=== PATIENT | male | born 1995 | race Caucasian/White ===

== ENCOUNTER 2021-12-05 19:10 | Emergency (ER) | payer OTHER ==
--- NOTE | 2021-12-05 19:56 | ERPHSYRPT ---
- History of Present Illness Time Seen by Provider: 12/05/21 19:56 Source: patient Exam Limitations: no limitations Physician History: This is a 26-year-old white male patient of Dr. Douglas who presents with concerned that he may have come in contact with a bat at his home. This occurred earlier today. He stated that the bat was flying around above his head. He definitely does not recall being bit by the bat. He has not handled the bat nor touched it. He chronically has cuts into his arms and legs and he does not think that they were bat bites but he just was not sure. He has no complaints of symptoms. Quality: other (No symptoms) Location: other (No symptoms) Possible Causes: other (No known bites) Allergies/Adverse Reactions: No Known Drug Allergies Allergy (Verified 12/05/21 19:58) Home Medications: Albuterol Sulfate [Albuterol Sulfate Hfa] 8.5 gm IH Q4-6HPRN PRN 12/05/21 [History] Travel Risk - International Travel Have you traveled outside of the country in past 3 weeks: No - Coronavirus Screening Are you exhibiting any of the following symptoms?: No Close contact with a COVID-19 positive Pt in past 14-21 Days: No - Review of Systems Constitutional: No Symptoms Eyes: No Symptoms Ears, Nose, & Throat: No Symptoms Respiratory: No Symptoms Cardiac: No Symptoms Abdominal/Gastrointestinal: No Symptoms Genitourinary Symptoms: No Symptoms Musculoskeletal: No Symptoms Skin: No Symptoms Neurological: No Symptoms Psychological: No Symptoms Endocrine: No Symptoms Hematologic/Lymphatic: No Symptoms Immunological/Allergic: No Symptoms All Other Systems: Reviewed and Negative - Past Medical History Pertinent Past Medical History: Yes - Past Surgical History Past Surgical History: Yes - Nursing Vital Signs Nursing Vital Signs: Initial Vital Signs Temperature 98.1 F 12/05/21 19:46 Pulse Rate 87 12/05/21 19:46 Respiratory Rate 16 12/05/21 19:46 Blood Pressure 142/105 12/05/21 19:46 O2 Sat by Pulse Oximetry 96 12/05/21 19:46 Pain Scale Pain Intensity 0 - Physical Exam General Appearance: no apparent distress, alert, anxiety Eye Exam: PERRL/EOMI, eyes nml inspection Ears, Nose, Throat Exam: normal ENT inspection, moist mucous membranes Neck Exam: normal inspection, non-tender, supple, full range of motion Respiratory Exam: airway intact, No chest tenderness, No respiratory distress Gastrointestinal/Abdomen Exam: No tenderness Rectal Exam: not done Back Exam: normal inspection, normal range of motion, No CVA tenderness, No vertebral tenderness Extremity Exam: normal inspection, normal range of motion, pelvis stable Neurologic Exam: alert, oriented x 3, cooperative, 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 No obvious scratches to his arms face neck or torso.) Lymphatic Exam: No adenopathy SpO2 Interpretation: normal O2 Delivery: Room Air - Progress Progress: unchanged Progress Note: 12/05/21 20:51 Medical decision making: I believe this patient has a very low risk of having had significant exposure to a bat that could cause rabies. I reassured him that I felt his risk is low. I told him he can be reassessed in the emergency room or by his primary care physician. He does not recall being bit, touching, or being exposed whatsoever to the bat that he actually captured with a fishing net and through outside. Counseled pt/family regarding: diagnosis - Departure Departure Disposition: Home Clinical Impression: Encounter for medical screening examination Condition: Stable Critical Care Time: No Referrals: RISA DOUGLAS MD [Primary Care Provider] - Follow up/PCP as directed Additional Instructions: May return to the emergency department if needed. May follow-up with your [facility] care physician for further evaluation.
[2021-12-05 19:58] VITALS: BP 142/105
[2021-12-05 21:10] VITALS: PULSE 74; O2SAT 98
== END 2021-12-05 21:09 | disposition home or self-care (01) ==
LOC: ED 19:10
DX: Z77.128 Contact with and (suspected) exposure to other hazards in the physical environment (principal)
CPT/HCPCS: 99281

== ENCOUNTER 2023-08-25 13:07 | Emergency (ER) | payer OTHER ==
--- NOTE | 2023-08-25 13:52 | XRAY ---
Indication: Pain and swelling following injury. Comparison: None 3 portable views right hand demonstrates nondisplaced minimally angulated fracture distal 5th metacarpal with soft tissue swelling. No other bony, articular, or soft tissue abnormalities.
[2023-08-25 13:53] VITALS: RESP 18; TEMP 97.7; O2SAT 95
--- NOTE | 2023-08-25 14:24 | ERPHSYRPT ---
- History of Present Illness Time Seen by Provider: 08/25/23 13:12 Source: patient Exam Limitations: no limitations Patient Subjective Stated Complaint: C/O right hand injury. Patient states he dropped a keg and attempted to catch it smashing his right hand between that keg and another keg. This happened approx 2 hours prior to coming into the ER today. Triage Nursing Assessment: Patient is alert and oriented. Top of Right hand and lateral right hand near 5th digit is swollen and bruising. Sensation WNL. Radial pulse present. Physician History: 28 years old right-handed dominant male presented in the ER after his right hand medial aspect got smashed between 2 kegs while at work almost 2 hours ago with increasing swelling and pain in the medial aspect of distal dorsal hand with painful movements at fifth finger. No numbness or tingling in the finger. Pain shooting to the fifth finger and in the wrist area. No difficulty movements of wrist. Allergies/Adverse Reactions: No Known Drug Allergies Allergy (Verified 08/25/23 13:28) Hx Tetanus, Diphtheria Vaccination/Date Given: Yes Hx Influenza Vaccination/Date Given: No Hx Pneumococcal Vaccination/Date Given: No Immunizations Up to Date: Yes Travel Risk - International Travel Have you traveled outside of the country in past 3 weeks: No - Emerging Infectious Disease Are you exhibiting symptoms associated with any current EIDs: No - Review of Systems Constitutional: No Symptoms Respiratory: No Symptoms Cardiac: No Symptoms Musculoskeletal: Injury, Joint Pain, Joint Swelling Skin: No Symptoms Neurological: No Symptoms Hematologic/Lymphatic: No Symptoms Immunological/Allergic: No Symptoms - Past Medical History Pertinent Past Medical History: Yes Respiratory History: Asthma - Past Surgical History Past Surgical History: No - Social History Smoking Status: Never smoker Exposure to second hand smoke: No Drug Use: none Patient Lives Alone: No - Nursing Vital Signs Nursing Vital Signs: Initial Vital Signs Temperature 97.7 F 08/25/23 13:29 Pulse Rate 85 08/25/23 13:29 Respiratory Rate 18 08/25/23 13:29 Blood Pressure 149/100 08/25/23 13:29 O2 Sat by Pulse Oximetry 95 08/25/23 13:29 Pain Scale Pain Intensity 4 - Physical Exam General Appearance: no apparent distress, alert Neck Exam: normal inspection, full range of motion Cardiovascular/Respiratory Exam: normal breath sounds, regular rate/rhythm Wrist Exam: normal inspection, non-tender, no evidence of injury, normal ROM Hand Exam: bone tenderness (Fifth metacarpal distal dorsal aspect with some swelling and restricted motion at metacarpophalangeal joint of right fifth digit. Distal neurovascular intact. No crepitus.), limited ROM, soft tissue tenderness, swelling Neuro/Tendon Exam: normal sensation, normal motor functions, normal tendon functions Mental Status Exam: alert, oriented x 3, cooperative Skin Exam: normal color SpO2 Interpretation: normal SpO2: 95 O2 Delivery: Room Air Ordered Tests: Active Orders 24 hr Category Date Time Status HAND (MINIMUM 3 VIEWS) Stat Exams 08/25/23 13:28 Completed - Progress Progress: improved Progress Note: 08/25/23 14:22 28-year-old [id number] is evaluated in the ER for right hand fifth distal metacarpal area swelling and pain with some restricted range of motion at the metacarpophalangeal joint. Patient has a smashed injury between 2 kegs at work. Intact distal neurovascular. Patient x-ray showed nondisplaced minimally angulated fifth distal metacarpal fracture reviewed by me followed by official read. Placed in ulnar gutter Ortho-Glass splint by RN with intact distal neurovascular afterwards. Patient is offered pain medications here which she declined. Will continue with NSAIDs to go home and outpatient orthopedic follow-up encouraged. Discussed signs symptoms of worsening needing return to ER which he seems understanding. Counseled pt/family regarding: diagnosis, need for follow-up, rad results Medical Desision Making - Diagnostic Testing Diagnostic test were ordered, analyzed, and reviewed by me: Yes Radiological Interpretation: Interpreted by me, Reviewed by me - Risk of complications The pt has a mod risk of morbidity or mortality based on: Need for prescription drug management - Departure Departure Disposition: Home Clinical Impression: Fracture of fifth metacarpal bone of right hand Condition: Stable Critical Care Time: No Referrals: RISA DOUGLAS MD [Primary Care Provider] - Follow up with PCP 1 day GT LEYVA MD [ACTIVE STAFF] - Follow up/PCP as directed (Call for appointment for reevaluation in the morning.) Instructions: Boxer's Fracture (DC) Additional Instructions: Keep it elevated, intermittent ice application. Take Tylenol/ibuprofen as needed. Follow-up with orthopedic surgery for reevaluation in the morning. Return to ER for intractable pain swelling, bluish discoloration or difficulty movements of the fingers/numbness of finger etc. Prescriptions: Ibuprofen 600 mg PO Q6HPRN PRN 10 Days #20 tablet PRN Reason: Pain
[2023-08-25 14:27] VITALS: BP 147/87; PULSE 75
== END 2023-08-25 14:28 | disposition home or self-care (01) ==
LOC: ED 13:07
DX: S62.396A Other fracture of fifth metacarpal bone, right hand, initial encounter for closed fracture (principal); W23.0XXA Caught, crushed, jammed, or pinched between moving objects, initial encounter; Y99.0 Civilian activity done for income or pay
CPT/HCPCS: 29125; 73130; 99283